=== PATIENT | female | born 1990 | race Caucasian/White ===

== ENCOUNTER → 2017-08-19 | Outpatient (CLI) | payer OTHER | LOC: M RAD 10:20 | DX: Z36.89 Encounter for other specified antenatal screening (principal); Z3A.34 34 weeks gestation of pregnancy | CPT/HCPCS: 76820 ==

== ENCOUNTER → 2017-08-27 | Outpatient (REF) | payer OTHER | LOC: M LAB REF 18:20 | DX: Z34.83 Encounter for supervision of other normal pregnancy, third trimester (principal) | CPT/HCPCS: 87081 ==

== ENCOUNTER 2017-09-19 04:31 | Inpatient (IN) | payer OTHER ==
[2017-09-19] MEDS ORDERED: CALCIUM GLUCONATE 1,000 MG in D5W MINI-BAG PLUS 100 ML IV (07:15)
[2017-09-19] MEDS: LABETALOL HCL 100 MG/20 ML VIAL IV ×8 (07:26→12:55)
[2017-09-19] MEDS: MAG Sulf (L&D) 4 GM/100 ML 4 GM in APPROPRIATE DILUENT 1 EA IV ×2 (07:45→12:00)
[2017-09-19 07:49] LABS: HEMATOCRIT 31.8 % (36.0-47.0); HEMOGLOBIN 11.3 g/dl (12.0-15.5); MEAN CORPUSCULAR HEMOGLOBIN 31.7 pg (27.0-33.0); MEAN CORPUSCULAR HGB CONC 35.5 g/dl (32.0-36.5); MEAN CORPUSCULAR VOLUME 89.3 fl (80.0-96.0); RED BLOOD COUNT 3.56 10^6/uL (4.00-5.40); RED CELL DISTRIBUTION WIDTH 13.4 % (11.5-14.5); WHITE BLOOD COUNT 15.4 10^3/uL (4.0-10.0)
[2017-09-19 08:05] LABS: PLATELET COUNT, AUTOMATED 74 10^3/uL (150-450)
[2017-09-19 08:06] LABS: IMMATURE PLATELET FRACTION % 11.4 % (0.0-9.6)
[2017-09-19] MEDS: LR 1,000 ML IV ×3 (08:06→21:01)
[2017-09-19] MEDS: miSOPROStol 50 MCG 1/2 TAB (S0191) PO (08:07)
[2017-09-19] MEDS: MAG Sulf (OBGYN) 20GM/500ML 20,000 MG in APPROPRIATE DILUENT 1 EA IV ×3 (08:07→20:11)
[2017-09-19 08:38] LABS: ALT/SGPT 90 U/L (12-78); AST/SGOT 104 U/L (7-37); BILIRUBIN,TOTAL 0.6 MG/DL (0.2-1.0); CREATININE FOR GFR 0.74 MG/DL (0.55-1.30); GLOMERULAR FILTRATION RATE > 60.0 (>60); LDH LACTATE DEHYDROGENASE 382 U/L (84-246)
[2017-09-19 09:03] LABS: HBSAG L&D NEGATIVE (NEGATIVE)
[2017-09-19] MEDS ORDERED: LIDOCAINE 2% INJ 100 MG/5 ML SDV (FOR ANES.) As Ordered (10:23)
[2017-09-19] MEDS ORDERED: SUCCINYLCHOLINE 100 MG/5 ML SYRINGE (J0330) As Ordered (10:23)
[2017-09-19] MEDS ORDERED: fentaNYL 100 MCG/2 ML INJECTION (J3010) As Ordered ×4 (10:23→12:14)
[2017-09-19] MEDS ORDERED: PROPOFOL 200 MG/20 ML VIAL As Ordered (10:23)
[2017-09-19] MEDS ORDERED: MIDAZOLAM INJ 2 MG/2 ML VIAL (J2250) As Ordered (10:24)
[2017-09-19] MEDS ORDERED: ceFAZolin 2 GM/D5W 50 ML IV BAG (J0690 PER 500MG) As Ordered (10:27)
[2017-09-19] MEDS ORDERED: BICITRA 30ML SOLN UDC As Ordered (10:27)
[2017-09-19] MEDS: BICITRA 30ML SOLN UDC PO (10:37)
[2017-09-19] MEDS ORDERED: PERCOCET 5MG/325MG TAB PO (11:45)
[2017-09-19] MEDS ORDERED: ONDANSETRON 4MG/2ML VIAL (J2405) IV ×2 (11:45→12:30)
[2017-09-19] MEDS ORDERED: LABETALOL HCL 100 MG/20 ML VIAL As Ordered (11:56)
[2017-09-19] MEDS ORDERED: PERCOCET 5MG/325MG TAB As Ordered (12:14)
[2017-09-19] MEDS: PERCOCET 5MG/325MG TAB PO (12:14)
[2017-09-19] MEDS: fentaNYL 100 MCG/2 ML INJECTION (J3010) IV ×2 (12:14→12:25)
[2017-09-19] MEDS ORDERED: hydrALAZINE INJ 20 MG/ML VIAL IV (13:00)
[2017-09-19] MEDS ORDERED: LABETALOL HCL 100 MG/20 ML VIAL IV (13:00)
[2017-09-19] MEDS: MEASLES,MUMPS,RUBELLA VACCINE INJ (MMR-II) (90707) SC (13:25)
[2017-09-19] MEDS: RHOGAM 300 MCG (1500 IU) INJ (J2790) IM (13:25)
[2017-09-19] MEDS: KETOROLAC 30 MG/ML VIAL (J1885) IV ×2 (14:01→19:34)
[2017-09-19] MEDS ORDERED: MORPHINE 4 MG/ML 1ML VIAL/SYRINGE (J2270) IV (14:15)
[2017-09-20] MEDS: KETOROLAC 30 MG/ML VIAL (J1885) IV ×2 (01:51→06:46)
[2017-09-20] MEDS: LR 1,000 ML IV ×3 (03:45→19:28)
[2017-09-20] MEDS: MAG Sulf (OBGYN) 20GM/500ML 20,000 MG in APPROPRIATE DILUENT 1 EA IV (06:14)
[2017-09-20 07:35] LABS: HEMOGLOBIN 9.8 g/dl (12.0-15.5); MEAN CORPUSCULAR HEMOGLOBIN 31.6 pg (27.0-33.0); MEAN CORPUSCULAR VOLUME 90.3 fl (80.0-96.0); PLATELET COUNT, AUTOMATED 124 10^3/uL (150-450); RED CELL DISTRIBUTION WIDTH 13.8 % (11.5-14.5); WHITE BLOOD COUNT 18.2 10^3/uL (4.0-10.0)
[2017-09-20] MEDS: PRENATAL VITAMINS CHEWABLE TABLET PO (09:59)
[2017-09-20] MEDS: IBUPROFEN 800 MG TAB PO ×2 (15:22→22:23)
[2017-09-21] MEDS: IBUPROFEN 800 MG TAB PO ×3 (06:05→23:27)
[2017-09-21 06:55] LABS: HEMATOCRIT 26.8 % (36.0-47.0); HEMOGLOBIN 9.1 g/dl (12.0-15.5); MEAN CORPUSCULAR HEMOGLOBIN 31.5 pg (27.0-33.0); MEAN CORPUSCULAR VOLUME 92.7 fl (80.0-96.0); PLATELET COUNT, AUTOMATED 153 10^3/uL (150-450); RED BLOOD COUNT 2.89 10^6/uL (4.00-5.40); RED CELL DISTRIBUTION WIDTH 13.9 % (11.5-14.5); WHITE BLOOD COUNT 17.2 10^3/uL (4.0-10.0)
[2017-09-21 07:26] LABS: ALT/SGPT 50 U/L (12-78); AST/SGOT 41 U/L (7-37); BILIRUBIN,TOTAL 0.1 MG/DL (0.2-1.0); CREATININE FOR GFR 0.77 MG/DL (0.55-1.30); GLOMERULAR FILTRATION RATE > 60.0 (>60); LDH LACTATE DEHYDROGENASE 370 U/L (84-246); URIC ACID 5.1 MG/DL (2.6-6.0)
[2017-09-21] MEDS: PRENATAL VITAMINS CHEWABLE TABLET PO (08:32)
[2017-09-21 14:19] LABS: ANION GAP 7 MEQ/L (8-16); BLOOD UREA NITROGEN 16 MG/DL (7-18); CALCIUM LEVEL 6.2 MG/DL (8.5-10.1); CARBON DIOXIDE LEVEL 25 MEQ/L (21-32); CHLORIDE LEVEL 110 MEQ/L (98-107); GLUCOSE, FASTING 71 MG/DL (70-100); POTASSIUM SERUM 4.4 MEQ/L (3.5-5.1); SODIUM LEVEL 142 MEQ/L (136-145)
[2017-09-21] MEDS: FUROSEMIDE 20 MG/2 ML VIAL (J1940) IV (17:00)
[2017-09-22] MEDS: IBUPROFEN 800 MG TAB PO ×3 (06:49→23:16)
[2017-09-22 08:16] LABS: HEMATOCRIT 27.3 % (36.0-47.0); HEMOGLOBIN 9.2 g/dl (12.0-15.5); MEAN CORPUSCULAR HEMOGLOBIN 31.7 pg (27.0-33.0); MEAN CORPUSCULAR HGB CONC 33.7 g/dl (32.0-36.5); MEAN CORPUSCULAR VOLUME 94.1 fl (80.0-96.0); PLATELET COUNT, AUTOMATED 202 10^3/uL (150-450); RED CELL DISTRIBUTION WIDTH 14.1 % (11.5-14.5); WHITE BLOOD COUNT 14.9 10^3/uL (4.0-10.0)
[2017-09-22 08:40] LABS: ALBUMIN 1.5 GM/DL (3.2-5.2); ALBUMIN/GLOBULIN RATIO 0.48 (1.00-1.93); ALKALINE PHOSPHATASE 166 U/L (45-117); ALT/SGPT 56 U/L (12-78); ANION GAP 8 MEQ/L (8-16); AST/SGOT 56 U/L (7-37); BILIRUBIN,TOTAL 0.2 MG/DL (0.2-1.0); BLOOD UREA NITROGEN 10 MG/DL (7-18); CARBON DIOXIDE LEVEL 23 MEQ/L (21-32); CHLORIDE LEVEL 110 MEQ/L (98-107); CREATININE FOR GFR 0.78 MG/DL (0.55-1.30); GLOMERULAR FILTRATION RATE > 60.0 (>60); GLUCOSE, FASTING 98 MG/DL (70-100); LDH LACTATE DEHYDROGENASE 376 U/L (84-246); SODIUM LEVEL 141 MEQ/L (136-145); TOTAL PROTEIN 4.6 GM/DL (6.4-8.2); URIC ACID 4.6 MG/DL (2.6-6.0)
[2017-09-22] MEDS: PRENATAL VITAMINS CHEWABLE TABLET PO (08:57)
[2017-09-22] MEDS: LABETALOL 200 MG TAB PO ×2 (08:57→21:08)
[2017-09-22] MEDS: FUROSEMIDE 20 MG/2 ML VIAL (J1940) IV ×2 (08:57→16:53)
[2017-09-23] MEDS: IBUPROFEN 800 MG TAB PO (06:17)
[2017-09-23] MEDS: FUROSEMIDE 20 MG/2 ML VIAL (J1940) IV (09:29)
[2017-09-23] MEDS: LABETALOL 200 MG TAB PO (09:29)
[2017-09-23] MEDS: PRENATAL VITAMINS CHEWABLE TABLET PO (09:30)
== END 2017-09-23 12:10 | disposition home or self-care (01) | DRG 540 ==
LOC: M LDO 04:31 → M LDI 06:14 → M OBS 09-20 12:33
PROC: 10D00Z1 Extraction of Products of Conception, Low, Open Approach (ICD-10-PCS; principal; 2017-09-19 10:48)
DX: O14.14 Severe pre-eclampsia complicating childbirth (principal); Z37.0 Single live birth; Z3A.39 39 weeks gestation of pregnancy; O14.24 HELLP syndrome, complicating childbirth

== ENCOUNTER → 2018-04-24 | Outpatient (REF) | payer OTHER ==
[~2018-04-24] MED LIST: IBUP80TA PO; LABE200T32 PO; MAPA500T17 PO; OXYC1TAB23 PO; PRENTAB9 PO
[2018-04-24 20:10] LABS: BASO # 0.1 10^3/uL (0.0-0.2); BASO % 0.6 % (0.0-1.0); EOS # 0.4 10^3/uL (0.0-0.50); EOS % 3.5 % (0.0-3.0); HEMATOCRIT 41.2 % (36.0-47.0); HEMOGLOBIN 13.4 g/dl (12.0-15.5); LYMPH # 2.7 10^3/uL (1.5-6.5); LYMPH % 26.4 % (24.0-44.0); MEAN CORPUSCULAR HEMOGLOBIN 28.5 pg (27.0-33.0); MEAN CORPUSCULAR HGB CONC 32.5 g/dl (32.0-36.5); MEAN CORPUSCULAR VOLUME 87.5 fl (80.0-96.0); MONO # 0.9 10^3/uL (0.0-0.8); MONO % 9.3 % (0.0-5.0); NEUTROPHILS # 6.1 10^3/uL (1.8-7.7); PLATELET COUNT, AUTOMATED 283 10^3/uL (150-450); RED BLOOD COUNT 4.71 10^6/uL (4.00-5.40); WHITE BLOOD COUNT 10.1 10^3/uL (4.0-10.0)
[2018-04-24 20:22] LABS: ALT/SGPT 36 U/L (12-78); BILIRUBIN,TOTAL 0.5 MG/DL (0.2-1.0); BLOOD UREA NITROGEN 16 MG/DL (7-18); CALCIUM LEVEL 8.7 MG/DL (8.5-10.1); CARBON DIOXIDE LEVEL 25 MEQ/L (21-32); CHLORIDE LEVEL 102 MEQ/L (98-107); CHOLESTEROL LEVEL 234 MG/DL (<200); CHOLESTEROL RISK RATIO 4.333 (<5); CREATININE FOR GFR 0.88 MG/DL (0.55-1.30); GLOMERULAR FILTRATION RATE > 60.0 (>60); GLUCOSE, FASTING 79 MG/DL (70-100); HDL CHOLESTEROL 54 MG/DL (>40); LDL CHOLESTEROL 136 MG/DL (<100); NON-HDL-C 180 MG/DL; POTASSIUM SERUM 3.9 MEQ/L (3.5-5.1); SODIUM LEVEL 137 MEQ/L (136-145); TOTAL PROTEIN 7.6 GM/DL (6.4-8.2); TRIGLYCERIDES LEVEL 222 MG/DL (<150)
[2018-04-24 20:26] LABS: TOTAL 25(OH) VITAMIN D 25.4 NG/ML (30.0-100.0)
[2018-04-24 20:28] LABS: HEMOGLOBIN A1c 5.6 %
== END ==
LOC: M LABDRWAD 09:41
PROVIDERS: ATTEND Nurse Practitioner Family
DX: Z13.9 Encounter for screening, unspecified (principal)

== ENCOUNTER → 2018-10-03 | Outpatient (CLI) | payer OTHER ==
[~2018-10-03] MED LIST changes: -MAPA500T17 PO; +MAPA500T2 PO
--- NOTE | 2018-10-06 18:23 | SLEEPHOME ---
DATE OF PROCEDURE: 10/03/2018 ORDERED BY: AIXA Prather [facility] home sleep testing was performed due to concern for the obstructive sleep apnea syndrome. For testing a nocturnal T3 respiratory monitoring device was used. Continuous record was made of pulse, oxygen saturation, airflow, chest, abdominal strain and body position. 9 hours and 59 minutes of data were reviewed. There were 7 hours and 4 minutes marked as time in bed. During the interval marked time in bed, there were 420 respiratory events identified of 10 seconds in duration or greater for a respiratory event index of 59.4. The events were primarily obstructive, pulse rate and saturation data are unable to be reported as the probe became dislodged early in testing. Testing was performed in both the supine and nonsupine positions. IMPRESSION: Abnormal home sleep testing with repetitive respiratory events and a respiratory event index of 59.4 is consistent with the obstructive sleep apnea syndrome. RECOMMENDATIONS: The patient should be encouraged to undergo a formal sleep evaluation and in laboratory pressure titration.
== END ==
LOC: M SLEEP HO 09:57
PROVIDERS: ATTEND Nurse Practitioner Family
DX: R40.0 Somnolence (principal)

== ENCOUNTER → 2018-10-29 | Outpatient (CLI) | payer OTHER ==
--- NOTE | 2018-10-31 20:43 | SLEEPCENT ---
DATE OF PROCEDURE: 10/29/2018 ORDERED BY: AIXA Prather Nocturnal polysomnography was performed for the titration of pressure therapy in this patient with a clinical diagnosis of obstructive sleep apnea syndrome confirmed by home testing revealing a respiratory event index of 59.4. For testing a [employer] SoftEdge standard size mask was used, 4 cm of water pressure were applied to the circuit and the lights were extinguished. 7 hours and 55 minutes of data were reviewed. There were 431 minutes of sleep identified. Sleep latency was prolonged at 33 minutes. Rapid eye movement (REM) latency was prolonged at 109 minutes. Sleep architecture improved with three REM cycles and evidence of REM rebound. Overall sleep efficiency 92.1%. The electrocardiogram showed a sinus rhythm with an average heart rate of 80 beats per minute. EEG showed reasonably normal waveforms for awake and sleep. No focal events were identified. Respiratory events were fully palliated with continuous positive airway pressure (CPAP) at a pressure of +6 and remaining measures of sleep physiology were normal. IMPRESSION: Obstructive sleep apnea syndrome (G47.33). RECOMMENDATIONS: Nightly use of pressure therapy 6 cm of water.
== END ==
LOC: M SLEEP 19:41
PROVIDERS: ATTEND Nurse Practitioner Family
DX: G47.33 Obstructive sleep apnea (adult) (pediatric) (principal)

== ENCOUNTER → 2019-07-01 | Outpatient (REF) | payer OTHER ==
[2019-07-01 13:22] LABS: BASO % 0.6 % (0.0-1.0); EOS # 0.1 10^3/uL (0.0-0.5); EOS % 2.6 % (0.0-3.0); HEMATOCRIT 41.1 % (36.0-47.0); HEMOGLOBIN 13.5 g/dl (12.0-15.5); LYMPH # 1.6 10^3/uL (1.5-5.0); MEAN CORPUSCULAR HEMOGLOBIN 29.2 pg (27.0-33.0); MEAN CORPUSCULAR HGB CONC 32.8 g/dl (32.0-36.5); MEAN CORPUSCULAR VOLUME 88.8 fl (80.0-96.0); MONO # 0.4 10^3/uL (0.0-0.8); MONO % 8.1 % (0.0-5.0); NEUTROPHILS # 2.7 10^3/uL (1.5-8.5); NEUTROPHILS % 55.5 % (36.0-66.0); PLATELET COUNT, AUTOMATED 252 10^3/uL (150-450); RED BLOOD COUNT 4.63 10^6/uL (4.00-5.40); WHITE BLOOD COUNT 4.9 10^3/uL (4.0-10.0)
[2019-07-01 13:43] LABS: ALBUMIN 4.1 GM/DL (3.2-5.2); ALT/SGPT 40 U/L (12-78); BLOOD UREA NITROGEN 15 MG/DL (7-18); CALCIUM LEVEL 9.1 MG/DL (8.5-10.1); CARBON DIOXIDE LEVEL 28 MEQ/L (21-32); CHLORIDE LEVEL 107 MEQ/L (98-107); CHOLESTEROL LEVEL 216 MG/DL (<200); CREATININE FOR GFR 0.93 MG/DL (0.55-1.30); FREE T4 0.92 NG/DL (0.76-1.46); GLOMERULAR FILTRATION RATE > 60.0 (>60); GLUCOSE, FASTING 86 MG/DL (70-100); HDL CHOLESTEROL 40 MG/DL (>40); LDL CHOLESTEROL 157 MG/DL (<100); NON-HDL-C 176 MG/DL; POTASSIUM SERUM 3.9 MEQ/L (3.5-5.1); SODIUM LEVEL 138 MEQ/L (136-145); THYROID STIMULATING HORMONE 0.809 uIU/ML (0.358-3.740); TOTAL PROTEIN 7.3 GM/DL (6.4-8.2); TRIGLYCERIDES LEVEL 97 MG/DL (<150)
[2019-07-01 14:27] LABS: HEMOGLOBIN A1c 5.4 %
== END ==
LOC: M LAB REF 12:30
PROVIDERS: ATTEND Nurse Practitioner Family
DX: R06.83 Snoring (principal); Z13.29 Encounter for screening for other suspected endocrine disorder; F41.9 Anxiety disorder, unspecified; Z13.9 Encounter for screening, unspecified

== ENCOUNTER → 2019-07-01 | Outpatient (REF) | payer OTHER | LOC: M SFHCWAGY 17:12 | PROVIDERS: ATTEND Specialist | DX: Z12.4 Encounter for screening for malignant neoplasm of cervix (principal); R87.610 Atypical squamous cells of undetermined significance on cytologic smear of cervix (ASC-US) | CPT/HCPCS: 87624; G0123 ==

== ENCOUNTER → 2020-01-21 | Outpatient (CLI) | payer OTHER ==
[2020-01-21 14:14] LABS: BASO % 0.5 % (0.0-1.0); EOS # 0.2 10^3/uL (0.0-0.5); EOS % 2.2 % (0.0-3.0); HEMATOCRIT 39.2 % (36.0-47.0); HEMOGLOBIN 13.1 g/dl (12.0-15.5); LYMPH # 2.4 10^3/uL (1.5-5.0); LYMPH % 29.3 % (24.0-44.0); MEAN CORPUSCULAR HGB CONC 33.4 g/dl (32.0-36.5); MEAN CORPUSCULAR VOLUME 89.7 fl (80.0-96.0); MONO # 0.7 10^3/uL (0.0-0.8); MONO % 8.1 % (0.0-5.0); NEUTROPHILS # 4.8 10^3/uL (1.5-8.5); NEUTROPHILS % 59.5 % (36.0-66.0); PLATELET COUNT, AUTOMATED 241 10^3/uL (150-450); RED BLOOD COUNT 4.37 10^6/uL (4.00-5.40); WHITE BLOOD COUNT 8.1 10^3/uL (4.0-10.0)
[2020-01-21 14:24] LABS: INR 0.97; PROTHROMBIN TIME 13.1 SECONDS (12.5-14.3)
[2020-01-21 14:42] LABS: ALBUMIN 3.9 GM/DL (3.2-5.2); ALT/SGPT 25 U/L (12-78); BILIRUBIN,TOTAL 1.1 MG/DL (0.2-1.0); BLOOD UREA NITROGEN 14 MG/DL (7-18); CALCIUM LEVEL 9.2 MG/DL (8.5-10.1); CARBON DIOXIDE LEVEL 23 MEQ/L (21-32); CHLORIDE LEVEL 108 MEQ/L (98-107); CREATININE FOR GFR 0.79 MG/DL (0.55-1.30); FERRITIN 15 NG/ML (8-252); GLOMERULAR FILTRATION RATE > 60.0 (>60); GLUCOSE, FASTING 79 MG/DL (70-100); IRON (FE) 88 UG/DL (50-170); PERCENT SATURATION 29.1 % (13.2-45.0); POTASSIUM SERUM 3.7 MEQ/L (3.5-5.1); SODIUM LEVEL 140 MEQ/L (136-145); THYROXINE (T4) 7.9 UG/DL (4.5-12.0); TOTAL IRON BINDING CAPACITY 302 UG/DL (250-450); TOTAL PROTEIN 6.9 GM/DL (6.4-8.2)
[2020-01-27 11:15] LABS: DRVV SCREEN 45.6 SEC
[2020-01-27 11:32] LABS: PTT LUPUS TYPE ANTICOAG SCREEN 1.1 (0-1.2)
[2020-01-28 13:07] LABS: CARDIOLIPIN IGA ANTIBODY <9 APL U/mL (0-11); CARDIOLIPIN IGG ANTIBODY <9 GPL U/mL (0-14); CARDIOLIPIN IGM ANTIBODY <9 MPL U/mL (0-12)
== END ==
LOC: M LAB 13:18
PROVIDERS: ATTEND Physician Assistant
DX: N94.6 Dysmenorrhea, unspecified (principal); Z82.3 Family history of stroke

== ENCOUNTER → 2020-07-13 | Outpatient (REF) | payer OTHER | LOC: M SFHCWAGY 11:02 | PROVIDERS: ATTEND Specialist | DX: Z12.4 Encounter for screening for malignant neoplasm of cervix (principal); Z77.9 Other contact with and (suspected) exposures hazardous to health ==

== ENCOUNTER → 2021-04-07 | Outpatient (CLI) | payer OTHER, SELFPAY ==
[2021-04-07 11:30] LABS: FREE T4 0.93 NG/DL (0.76-1.46); THYROID STIMULATING HORMONE 0.872 uIU/ML (0.358-3.740)
[2021-04-07 11:33] LABS: PROGESTERONE 0.21 NG/ML
[2021-04-07 11:34] LABS: FOLLICLE STIMULATING HORMONE 5.7 mIU/mL; LUTEINIZING HORMONE 7.5 mIU/mL; PROLACTIN 8.4 NG/ML
[2021-04-08 19:10] LABS: TESTOSTERONE TOTAL FOR T&D < 3.0 ng/dL (13-71)
== END ==
LOC: M PLALAB 08:41
PROVIDERS: ATTEND Specialist
DX: N92.6 Irregular menstruation, unspecified (principal)

== ENCOUNTER → 2021-04-07 | Outpatient (CLI) | payer OTHER | LOC: M WHC 07:32 | PROVIDERS: ATTEND Specialist | DX: N92.6 Irregular menstruation, unspecified (principal); Z97.5 Presence of (intrauterine) contraceptive device; N85.4 Malposition of uterus ==

== ENCOUNTER → 2021-04-13 | Outpatient (REF) | LOC: M LABSMTC 09:55 | PROVIDERS: ATTEND Pediatrics | DX: Z11.52 Encounter for screening for COVID-19 (principal); Z20.822 Contact with and (suspected) exposure to COVID-19 ==

== ENCOUNTER 2021-07-23 18:47 | Emergency (ER) | payer MEDICARE, OTHER ==
[~2021-07-23] VITALS: Ht 167.6 cm; Wt 94.4 kg
[~2021-07-23 18:47] MED LIST changes: +LABE200T3 PO; -LABE200T32 PO
[2021-07-23 18:48] VITALS: BP 143/79
[2021-07-23] MEDS ORDERED: VENL75CA47 (18:58)
[2021-07-23] MEDS ORDERED: ETON1VAG3 (18:58)
[2021-07-23] MEDS ORDERED: LEVO25TA5 (18:58)
== END 2021-07-23 21:57 | disposition home or self-care (01) ==
LOC: M ED 18:47
DX: S69.92XA Unspecified injury of left wrist, hand and finger(s), initial encounter (principal); M79.642 Pain in left hand; W22.8XXA Striking against or struck by other objects, initial encounter; Y92.410 Unspecified street and highway as the place of occurrence of the external cause; Y93.9 Activity, unspecified; Y99.9 Unspecified external cause status

== ENCOUNTER → 2021-08-01 | Outpatient (CLI) | payer OTHER ==
[~2021-08-01] MED LIST changes: +ETON1VAG3; +LEVO25TA5; +VENL75CA47
== END ==
LOC: M SOG 14:10
PROVIDERS: ATTEND Physician Assistant
DX: M79.642 Pain in left hand (principal)

== ENCOUNTER → 2022-11-28 | Outpatient (REF) | payer MEDICARE, OTHER ==
[~2022-11-28] MED LIST changes: -LABE200T3 PO; +LABE200T5 PO
== END ==
LOC: M SFHCWAGY 13:17
PROVIDERS: ATTEND Specialist
DX: Z12.4 Encounter for screening for malignant neoplasm of cervix (principal)
CPT/HCPCS: 87624; G0123

== ENCOUNTER → 2024-01-02 | Outpatient (CLI) | payer OTHER ==
[2024-01-02 12:57] LABS: BASO % 0.6 % (0.0-1.0); EOS # 0.2 10^3/uL (0.0-0.5); EOS % 3.5 % (0.0-3.0); HEMATOCRIT 39.8 % (36.0-47.0); HEMOGLOBIN 13.7 g/dl (12.0-15.5); LYMPH # 2.5 10^3/uL (1.5-5.0); LYMPH % 35.7 % (24.0-44.0); MEAN CORPUSCULAR HEMOGLOBIN 31.4 pg (27.0-33.0); MEAN CORPUSCULAR HGB CONC 34.4 g/dl (32.0-36.5); MEAN CORPUSCULAR VOLUME 91.1 fl (80.0-96.0); MONO # 0.5 10^3/uL (0.0-0.8); MONO % 7.4 % (2.0-8.0); NEUTROPHILS # 3.6 10^3/uL (1.5-8.5); NEUTROPHILS % 52.5 % (36.0-66.0); PLATELET COUNT, AUTOMATED 242 10^3/uL (150-450); RED BLOOD COUNT 4.37 10^6/uL (4.00-5.40); WHITE BLOOD COUNT 6.9 10^3/uL (4.0-10.0)
[2024-01-02 13:21] LABS: HEMOGLOBIN A1c 4.8 % (4.0-6.0)
[2024-01-02 13:27] LABS: ALBUMIN 3.5 G/DL (3.2-5.2); ALKALINE PHOSPHATASE 46 U/L (46-116); ALT/SGPT 18 U/L (7.0-40); AST/SGOT 15 U/L (<34); BILIRUBIN,TOTAL 0.8 MG/DL (0.3-1.2); BLOOD UREA NITROGEN 16 MG/DL (9-23); CARBON DIOXIDE LEVEL 26 MMOL/L (20-31); CHLORIDE LEVEL 110 MMOL/L (98-107); CREATININE FOR GFR 0.95 MG/DL (0.55-1.30); FREE T4 1.15 NG/DL (0.89-1.76); GLOMERULAR FILTRATION RATE > 60.0 (>60); GLUCOSE, FASTING 86 MG/DL (60-100); HCG, SERUM QUANTITATIVE < 2.6 MIU/ML (<4.2); POTASSIUM SERUM 3.8 MMOL/L (3.5-5.1); SODIUM LEVEL 139 MMOL/L (136-145); THYROID STIMULATING HORMONE 1.389 uIU/ML (0.55-4.78); TOTAL PROTEIN 6.6 G/DL (5.7-8.2)
[2024-01-02 13:30] LABS: PROLACTIN 7.96 NG/ML
[2024-01-06 21:46] LABS: TESTOSTERONE FREE (DIRECT) 0.5 pg/mL (0.1-6.4)
== END ==
LOC: M PLALAB 07:53
PROVIDERS: ATTEND Nurse Practitioner Family
DX: N91.2 Amenorrhea, unspecified (principal)

== ENCOUNTER → 2024-04-14 | Outpatient (CLI) | payer OTHER | LOC: M SLEEP HO 11:01 | PROVIDERS: ATTEND Physician Assistant | DX: G47.33 Obstructive sleep apnea (adult) (pediatric) (principal) ==

== ENCOUNTER → 2025-03-30 | Outpatient (CLI) | payer OTHER ==
[~2025-03-30] MED LIST changes: -LABE200T5 PO; +LABE200T86 PO
== END ==
LOC: M PLAIMG 07:09
PROVIDERS: ATTEND Physician Assistant
DX: G43.009 Migraine without aura, not intractable, without status migrainosus (principal)

== ENCOUNTER 2025-04-13 12:04 | Emergency (ER) | payer OTHER ==
[~2025-04-13] VITALS: Ht 167.6 cm; Wt 78.3 kg
[2025-04-13] MEDS ORDERED: MECL-136 (12:54)
[2025-04-13] MEDS ORDERED: ATOG60TA (12:54)
[2025-04-13] MEDS ORDERED: SEMA1.7P (12:54)
[2025-04-13] MEDS ORDERED: VENL37.598 (12:54)
[2025-04-13] MEDS ORDERED: ONDA-282 (12:54)
[2025-04-13 13:22] LABS: BASO # 0.0 10^3/uL (0.0-0.2); BASO % 0.5 % (0.0-1.0); EOS # 0.2 10^3/uL (0.0-0.5); EOS % 2.4 % (0.0-3.0); LYMPH # 2.6 10^3/uL (1.5-5.0); LYMPH % 32.9 % (24.0-44.0); MONO # 0.4 10^3/uL (0.0-0.8); MONO % 5.2 % (2.0-8.0); NEUTROPHILS # 4.7 10^3/uL (1.5-8.5); NEUTROPHILS % 58.9 % (36.0-66.0); PLATELET COUNT, AUTOMATED 248 10^3/uL (150-450)
[2025-04-13 13:50] LABS: CALCIUM LEVEL 8.9 MG/DL (8.5-10.1); CARBON DIOXIDE LEVEL 26 MMOL/L (20-31); CHLORIDE LEVEL 105 MMOL/L (98-107); CK-MB VALUE MASS < 1.0 NG/ML (<3.6); CREATININE FOR GFR 0.85 MG/DL (0.55-1.30); GLOMERULAR FILTRATION RATE > 90.0 (>60); MAGNESIUM LEVEL 2.2 MG/DL (1.8-2.4); POTASSIUM SERUM 3.7 MMOL/L (3.5-5.1); SODIUM LEVEL 139 MMOL/L (136-145)
[2025-04-13 13:52] LABS: FREE T4 1.22 NG/DL (0.89-1.76)
[2025-04-13 13:58] LABS: CPK CREATINE PHOSPHOKINASE 61 U/L (34-145)
[2025-04-13 14:40] LABS: HCG, SERUM QUALITATIVE NEGATIVE (NEGATIVE)
[2025-04-13 17:00] VITALS: BP 103/65; TEMP 98.1; O2SAT 100
[2025-04-13] MEDS ORDERED: VALI5TAB PO (17:35)
[2025-04-13] MEDS ORDERED: vestibular PT (17:35)
== END 2025-04-13 17:45 | disposition home or self-care (01) ==
LOC: M ED 12:04
DX: R55 Syncope and collapse (principal); R42 Dizziness and giddiness; F32.9 Major depressive disorder, single episode, unspecified; F41.9 Anxiety disorder, unspecified; Z79.899 Other long term (current) drug therapy